=== PATIENT | male | born 1995 | race American Indian/Alaskan Native ===

== ENCOUNTER 2018-05-08 17:38 | Emergency (ER) | payer SELFPAY ==
[2018-05-08] MEDS ORDERED: NACL 0.9% 1000 ML 1,000 ML ONE (17:47)
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
[2018-05-08] MEDS ORDERED: CALCIUM CHLORIDE IV ONE (20:53)
[2018-05-08] MEDS ORDERED: XYLOCAINE CARDIAC IV ONE (20:53)
[2018-05-08] MEDS ORDERED: SODIUM BICARBONATE IV ONE (20:53)
[2018-05-08] MEDS ORDERED: ADRENALIN ONE (20:53)
== END 2018-05-08 23:35 ==
LOC: ED 17:38
DX: I46.9 Cardiac arrest, cause unspecified (principal); S01.90XA Unspecified open wound of unspecified part of head, initial encounter; Y93.89 Activity, other specified; Y92.89 Other specified places as the place of occurrence of the external cause; Y99.8 Other external cause status
CPT/HCPCS: 31500; 99285; J0171; J2001; J7030